=== PATIENT | female | born 1990 | race Caucasian/White ===

== ENCOUNTER 2020-04-18 02:30 | Emergency (ER) | payer OTHER ==
[2020-04-18 03:33] LABS: HEMOGLOBIN 9.7 gm/dl (12.3-15.3); RED BLOOD COUNT 3.66 M/UL (4.00-5.10); WHITE BLOOD COUNT 13.4 K/UL (4.5-11.0)
[2020-04-18 03:51] LABS: BUN/CREATININE RATIO 19 (0-10)
[2020-04-18] MEDS ORDERED: OMNICEF 300 MG300 MG PO (06:30)
== END 2020-04-18 06:40 | disposition home or self-care (01) ==
LOC: ER1 02:30
PROVIDERS: Physician Assistant
DX: O24.02 Pre-existing type 1 diabetes mellitus, in childbirth (principal); E10.65 Type 1 diabetes mellitus with hyperglycemia; O23.43 Unspecified infection of urinary tract in pregnancy, third trimester; Z3A.34 34 weeks gestation of pregnancy
CPT/HCPCS: 80053; 81001; 82009; 82800; 82962; 85025; 87086; 99283

== ENCOUNTER 2020-05-01 11:11 | Outpatient (CLI) | payer OTHER ==
[~2020-05-01] VITALS: Ht 154.9 cm; Wt 93.4 kg
[~2020-05-01 11:11] MED LIST: OMNICEF 300 MG300 MG PO
== END 2020-05-01 13:49 | disposition short-term general hospital (02) ==
LOC: GENOP 11:11
DX: O26.893 Other specified pregnancy related conditions, third trimester (principal)
CPT/HCPCS: 82962; 87635; 96360; 96361; 96372; J3105